=== PATIENT | female | born 1975 | race Caucasian/White ===

== ENCOUNTER 2019-11-01 08:42 | Emergency (ER) | payer BC ==
[~2019-11-01 08:42] MED LIST: ABILIFY10 MG PO; CELEXA40 MG PO; KLONOPIN1 MG PO; LATUDA PO; SAPHRIS5 MG PO; STRATTERA100 MG PO; Z.0.ADDERALL 10 MG10
--- OUTSIDE RECORDS SUMMARY | 2019-11-01 08:46 | XMS REPORT | Summary of Care ---
Author Author Caroline Page M.A. Unknown Address Unknown Phone Unavailable Care Team Providers Care Manager Quality Compliance Name Role Phone EFREN YU N.P. Unavailable Unavailable DEWAYNE HERNANDEZ M.D. Unavailable Unavailable DEWAYNE HERNANDEZ MD Unavailable Unavailable KATELYNN BOSS [place], VERONICA DAVIS Unavailable Unavailable Cyrus BOSS, Ph.D. Unavailable Unavailable Unavailable Unavailable Functional Status Name Dates Details Functional status health issues are not documented Status: Name Dates Details Cognitive status health issues are not documented Status: Problems Name Dates Details Flu vaccine need (V04.81, Z23) Status: Active History of Pneumonia of right lower lobe due to infectious organism (486, J18.1) Status: Resolved Allergic rhinitis due to pollen (477.0, J30.1) Status: Active Atypical nevi (216.9, D22.9) Status: Active Bipolar II disorder (296.89, F31.81) Status: Active Medications Name Dates Details Saphris 10 MG Sublingual Tablet Sublingual TAKE 1 TABLET TWICE DAILY * Start : 02-Oct-2016 Active Latuda 120 MG Oral Tablet TAKE 1 TABLET DAILY * Refills: 0 * Start : 02-Oct-2016 Active clonazePAM 1 MG Oral Tablet TAKE 1 TABLET TWICE DAILY PRN. >>>INTERIM REFIL ONLY. Pt NEEDS PSYCH FOLLOW-UP.< << * Quantity: 45 Refills: 0 EFREN YU N.P. * Start : 02-Oct-2016 Active Fluticasone Propionate 50 MCG/ACT Nasal Suspension USE 1 SPRAYS IN EACH NOSTRIL TWICE DAILY * Quantity: 1 Refills: 2 EFREN YU N.P. * Start : 30-Mar-2019 Active 16 GM Bottle buPROPion HCl ER (XL) 300 MG Oral Tablet Extended Release 24 Hour TAKE ONE (1) TABLET(S) BY MOUTH DAILY DIRECTED. * Quantity: 30 Refills: 2 DEWAYNE HERNANDEZ M.D. * Start : 30-Mar-2019 Active Sudafed PE Congestion 10 MG Oral Tablet TAKE 1 TABLET EVERY 4 HOURS NEEDED for head, sinus, ear congestion.. * Quantity: 60 Refills: 3 YU N.P., EFREN * Start : 16-Aug-2019 Active Lj Lopezil Cold & Flu 15-6.25-325 MG Oral Capsule TAKE DIRECTED FOR BEDTIME CONGESTION.. * Quantity: 5 Refills: 0 YU N.P., EFREN * Start : 16-Aug-2019 Active Levocetirizine Dihydrochloride 5 MG Oral Tablet TAKE 1 TABLET DAILY. * Quantity: 30 Refills: 5 YU N.P., EFREN * Start : 16-Aug-2019 Active predniSONE 10 MG Oral Tablet TAKE 1 TABLET DAILY. * Quantity: 7 Refills: 0 YU N.P., EFREN * Start : 16-Aug-2019 Active Allergies and Adverse Reactions Name Dates Details No Known Drug Allergies (Allergy) Status: Active Past Medical History Name Dates Details History of anemia (V12.3, Z86.2) Status: Resolved History of depression (V11.8, Z86.59) Status: Resolved History of Encounter for PPD test (V74.1, Z11.1) Status: Resolved History of Greater trochanteric bursitis of left hip (726.5, M70.62) Status: Resolved History of Hepatitis B vaccination administered at current visit (V49.89, Z23) Status: Resolved History of Left hip pain (719.45, M25.552) Status: Resolved History of malignant melanoma of skin (V10.82, Z85.820) Status: Resolved History of measles, mumps, and rubella vaccination (V49.89, Z92.29) Status: Resolved History of Need for Tdap vaccination (V06.1, Z23) Status: Resolved History of Piriformis syndrome of left side (355.0, G57.02) Status: Resolved History of Pneumonia of right lower lobe due to infectious organism (486, J18.1) Status: Resolved History of Thyroid dysfunction (246.9, E07.9) Status: Resolved History of Varicella vaccination given at current visit (V49.89, Z78.9) Status: Resolved Procedures Procedure Dates Details History of Ear Surgery Completed History of Tonsillectomy With Adenoidectomy Completed History of Tubal Ligation Completed Immunization Name Dates Details Hepatitis B, adult Lot #: [id number] on: 17-Sep-2018 Tdap (Adacel) Lot #: [id number] on: 17-Sep-2018 PPD, tuberculin skin test; purified protein derivative solution, intradermal Lot #: [id number] on: 17-Sep-2018 MMR Lot #: [id number] on: 17-Sep-2018 Varicella Lot #: [id number] on: 17-Sep-2018 Engerix-B 20 MCG/ML Injection Suspension Lot #: [id number] on: 19-Oct-2018 Fluzone Quadrivalent 0.5 ML Intramuscular Suspension Lot #: [id number] on: 19-Oct-2018 Hepatitis B, adult Lot #: [id number] on: 30-Mar-2019 Fluzone Quadrivalent 0.5 ML Intramuscular Suspension Lot #: [id number] on: 06-Sep-2019 Family History Name Dates Details Family history of malignant neoplasm of breast (V16.3, Z80.3) Status: Active Family history of multiple myeloma (V16.7, Z80.7) Status: Active Name Dates Details Family history of malignant neoplasm of breast (V16.3, Z80.3) Status: Active Family history of malignant neoplasm of cervix (V16.49, Z80.49) Status: Active Family history of skin cancer (V16.8, Z80.8) Status: Active Name Dates Details Family history of thyroid disease (V18.19, Z83.49) Status: Active Name Dates Details Family history of hyperlipidemia (V18.19, Z83.438) Status: Active Family history of thyroid disease (V18.19, Z83.49) Status: Active Name Dates Details Family history of hypertension (V17.49, Z82.49) Status: Active Name Dates Details Family history of lymphoma (V16.7, Z80.7) Status: Active Family history of leukemia (V16.6, Z80.6) Status: Active Social History Name Dates Details - Status: Name Dates Details Former smoker Vital Signs Date Test Result Details [id number] Temperature 98.2 f Status: Comments: Method: Temporal [id number]:10 BP Systolic 110 mm[Hg] Status: Comments: Location: LUE; Position: Sitting BP Diastolic 67 mm[Hg] Status: Comments: Location: LUE; Position: Sitting Temperature 98.7 f Status: Comments: Method: Temporal Height 68 in Status: Weight 164.25 lb Status: Body Mass Index Calculated 24.97 kg/m2 Status: Body Surface Area Calculated 1.88 m2 Status: Heart Rate 84 /min Status: Respiration Rate 12 /min Status: Physical Findings 0 Status: Comments: Alcohol Screen - How many times in the past yr have you had 5 (for M) or 4 (for F) or 4 (for all > 65yrs) or more drinks in a day? Results Date Description Value Details Results not documented Plan of Care Name Dates Details Planned Observations Planned Goals not documented Interventions Provided Medications/Immunizations Administered* Fluzone Quadrivalent 0.5 ML Intramuscular Suspension; Done: 06 Sep 2019 Instructions Name Dates Details Instructions not documented Encounters Appointment; DEWAYNE HERNANDEZ M.D. Encounter Diagnosis: Problem not documented On: 17-Sep-2018 10:45 Appointment; DEWAYNE HERNANDEZ M.D. Encounter Diagnosis: Problem not documented On: 17-Sep-2018 10:45 Appointment; TRUONG PRESSLEY P.A. Encounter Diagnosis: Problem not documented On: 19-Oct-2018 13:30 Appointment; DEWAYNE HERNANDEZ M.D. Encounter Diagnosis: Problem not documented On: 30-Mar-2019 14:00 Appointment; RAYNA KEITH NP Encounter Diagnosis: Problem not documented On: 27-Apr-2019 9:30 Appointment; DEWAYNE HERNANDEZ M.D. Encounter Diagnosis: Problem not documented On: 20-Jul-2019 12:30 Appointment; EFREN YU NP Encounter Diagnosis: Problem not documented On: 16-Aug-2019 15:30 Appointment; DEWAYNE HERNANDEZ M.D. Encounter Diagnosis: Problem not documented On: 06-Sep-2019 12:30
--- OUTSIDE RECORDS SUMMARY | 2019-11-01 08:47 | XMS REPORT ---
Author Author Admin, Yulan Organization Unknown Address Unknown Phone Unavailable PROBLEMS Condition Status Date Provider Notes Insomnia active Amanda Holley High risk meds longterm use active Amanda Holley ANXIETY DISORDER, UNSPECIFIED active Amanda Holley BIPOLAR I DISORDER, CURRENT EPISODE MANIC, MODERATE active Amanda Holley ENCOUNTERS Date Type Provider Location Encounter Diagnosis - [facility] Encounter Amanda Padilla Joann [facility] UNK - Ambulatory Encounter Amanda Holley [facility] UNK - Ambulatory Encounter Amanda Holley [facility] UNK - Ambulatory Encounter Amanda Padilla Joann [facility] UNK - Ambulatory Encounter Amanda Holley [facility] UNK - Ambulatory Encounter [facility] - Ambulatory Encounter Amanda Padilla Joann [facility] UNK - Ambulatory Encounter Amanda Holley [facility] UNK - Ambulatory Encounter Amanda Padilla [facility] UNK - Ambulatory Encounter Amanda Martínezalyssa [facility] UNK - Ambulatory Encounter Amanda Holley [facility] UNK - Ambulatory Encounter Amanda Padilla Joann [facility] Insomnia - Ambulatory Encounter Amanda Holley [facility] UNK - Ambulatory Encounter Amanda Holley [facility]K - [facility] BIPOLAR I DISORDER, CURRENT EPISODE MANIC, MODERATEANXIETY DISORDER, UNSPECIFIEDHigh risk meds longterm use - Ambulatory Encounter Kelsie La [facility] UNK VITAL SIGNS No Information Available Allergies No Known Allergy Information REASON FOR REFERRAL No Information Available RESULTS Date Observation Value Provider Reference Range Interpretation Location alanine aminotransferase (SGPT), serum 25 1/L [facility] 0-32 " aspartate aminotransferase (SGOT), serum 27 1/L [facility] 0-40 " alkaline phosphatase, serum 46 1/L [facility] 39-117 " bilirubin, serum, total <0.2 mg/dL [facility] 0.0-1.2 " albumin/globulin ratio, serum 2.4 [facility] 1.2-2.2 High " globulin, serum 2.0 [facility] 1.5-4.5 " albumin, serum 4.8 g/dL [facility] 3.5-5.5 " protein, total, serum 6.8 g/dL [facility] 6.0-8.5 " calcium, serum 9.8 mg/dL [facility] 8.7-10.2 " carbon dioxide, venous blood 24 mmol/L [facility] 20-29 " chloride, serum 98 mmol/L [facility] 96-106 " potassium, serum 3.9 mmol/L [facility] 3.5-5.2 " sodium, serum 141 mmol/L [facility] 134-144 " urea nitrogen/creatinine ratio, serum 12 [facility] 9-23 " eGFR if 113 mL/min/((173/100).m2) [facility] >59 " Estimated Glomerular Filtration Rate (calc) 98 mL/min/((173/100).m2) [facility] >59 " creatinine, serum 0.76 mg/dL [facility] 0.57-1.00 " urea nitrogen, blood 9 mg/dL [facility] 6-24 " blood glucose, random 108 mg/dL [facility] 65-99 High tricyclic antidrepressants, urine Negative Valerie Joann " propoxyphene screen, urine Negative Valerie Joann " opiates, urine, semiquantitative Negative Valerie Joann " phencyclidine screen, urine Negative Valerie Joann " Oxycodone urine screening Negative Valerie Joann " morphine drug screen, urine Negative Valerie Joann " Ecstasy (MDMA) Screen, urine Negative Valerie Joann " methamphetamine screen, urine Negative Valerie Joann " Methadone screen, urine Negative Valerie Joann " cannabinoid screen, urine Negative Valerie Joann " cocaine, urine Negative Valerie Joann " benzodiazepine screen, urine Negative Valerie Joann " barbiturates screen, urine Negative Valerie Joann " amphetamine screen, urine Negative Valerie Jaonn hemoglobin A1C, blood, as % of total hemoglobin 5.7 % [facility] 4.8-5.6 High " triiodothyronine (T3), serum 77 ng/dL [facility] 71-180 " thyroxine, serum, total 6.0 ug/dL [facility] 4.5-12.0 " thyroid stimulating hormone, serum 0.869 u[iU]/mL [facility] 0.450-4.500 " LDL cholesterol, serum 91 mg/dL [facility] 0-99 " very low density lipoproteins 18 mg/dL [facility] 5-40 " HDL cholesterol, serum 83 mg/dL [facility] >39 " triglyceride, serum, fasting 88 mg/dL [facility] 0-149 " cholesterol, serum 192 mg/dL [facility] 100-199 " alanine aminotransferase (SGPT), serum 17 1/L [facility] 0-32 " aspartate aminotransferase (SGOT), serum 21 1/L [facility] 0-40 " alkaline phosphatase, serum 49 1/L [facility] 39-117 " bilirubin, serum, total <0.2 mg/dL [facility] 0.0-1.2 " albumin/globulin ratio, serum 2.0 [facility] 1.2-2.2 " globulin, serum 2.3 [facility] 1.5-4.5 " albumin, serum 4.7 g/dL [facility] 3.5-5.5 " protein, total, serum 7.0 g/dL [facility] 6.0-8.5 " calcium, serum 9.4 mg/dL [facility] 8.7-10.2 " carbon dioxide, venous blood 23 mmol/L [facility] 20-29 " chloride, serum 90 mmol/L [facility] 96-106 Low " potassium, serum 4.8 mmol/L [facility] 3.5-5.2 " sodium, serum 130 mmol/L [facility] 134-144 Low " urea nitrogen/creatinine ratio, serum 10 [facility] 9-23 " eGFR if 126 mL/min/((173/100).m2) [facility] >59 " Estimated Glomerular Filtration Rate (calc) 109 mL/min/((173/100).m2) [facility] >59 " creatinine, serum 0.68 mg/dL [facility] 0.57-1.00 " urea nitrogen, blood 7 mg/dL [facility] 6-24 " blood glucose, random 89 mg/dL [facility] 65-99 " immature granulocytes, percentage of total cells, blood 0 % [facility] Not Estab. " basophil count, absolute 0.0 x10E3/uL [facility] 0.0-0.2 " Eosinophil Absolute Count 0.1 X10E3/UL [facility] 0.0-0.4 " monocyte count, blood, automated 1.0 X10E3/UL [facility] 0.1-0.9 High " lymphocyte count, blood, automated 2.2 X10E3/UL [facility] 0.7-3.1 " Absolute Neutrophils 3.5 X10E3/UL [facility] 1.4-7.0 " basophils as percent of blood leukocytes 0 % [facility] Not Estab. " eosinophils as percent of blood leukocytes 1 % [facility] Not Estab. " monocytes as percent of blood leukocytes 14 % [facility] Not Estab. " lymphocytes as percent of blood leukocytes 33 % [facility] Not Estab. " neutrophils as percent of blood leukocytes 52 % [facility] Not Estab. " platelet count 383 X10E3/UL [facility] 150-450 " red blood cell distribution width 15.4 % [facility] 12.3-15.4 " mean corpuscular hemoglobin concentration, RBC 32.2 G/DL [facility] 31.5-35.7 " mean corpuscular hemoglobin, RBC 26.7 pg [facility] 26.6-33.0 " mean corpuscular volume, RBC 83 fL [facility] 79-97 " hematocrit, blood 36.3 % [facility] 34.0-46.6 " hemoglobin, blood 11.7 g/dL [facility] 11.1-15.9 " erythrocyte (RBC) count 4.39 X10E6/UL [facility] 3.77-5.28 " leukocyte count, blood 6.8 X10E3/UL [facility] 3.4-10.8 HISTORY OF IMMUNIZATIONS No Information Available HISTORY OF MEDICATION USE Medication Instructions Dates Provider Comments TRAZODONE HCL 50 MG ORAL TABLET 1- 2 tabs p.o. take at bedtime Amanda Holley OXCARBAZEPINE 300 MG ORAL TABLET 1 tab Twice a Day Amanda Holley SAPHRIS 10 MG SUBLINGUAL TABLET SUBLINGUAL DISSOLVE 2 TABLETS UNDER THE TONGUE QHS Amanda Holley OXCARBAZEPINE 600 MG ORAL TABLET TK 1 T PO BID - Amanda Holley #60, 30 days supply, Prescribed by ALFONSO SOLER, Filled 07/20/2019 LATUDA 120 MG ORAL TABLET TK 1 T PO qpm Amanda Holley #30, 30 days supply, Prescribed by ALFONSO SOLER, Filled 07/20/2019 CLONAZEPAM 1 MG ORAL TABLET TAKE 1 T Three Times a Day as needed Amanda Holley #60, 30 days supply, Prescribed by DEWAYNE HERNANDEZ, Filled 07/20/2019 BUPROPION HCL ER (XL) 300 MG ORAL TABLET EXTENDED RELEASE 24 HOUR TK 1 T PO QD Amanda Holley #30, 30 days supply, Prescribed by ALFONSO SOLER, Filled 07/20/2019 SOCIAL HISTORY Date Observation Value Provider smoking status former smoker Amanda Holley " social history E&M . in 2017 after 16 marriage, 13 yo son and 17 yo daughter lives with 13 yo son and 17 yo daugter Employed. Highest education level: some college. working in a day care Sex at : Female. Amanda Kishan " social history reviewed E&M reviewed today Amanda Kishan smoking, advice to quit Yes Patel Kishan " drug use, illicit Never Patel Kishan " alcohol use Currently Patel Kishan " smoking status former smoker Patel Kishan " social history E&M . in 2017 after 16 marriage, 13 yo son and 17 yo daughter lives with 13 yo son and 17 yo daugter Employed. Highest education level: some college. working in a day care Sex at : Female. Amanda Holley " social history reviewed E&M reviewed today Patel Kishan drug use, illicit Never Patel Kishan " smoking status former smoker Patel Kishan " alcohol use Currently Patel Kishan " social history E&M . in 2017 after 16 marriage, 13 yo son and 17 yo daughter lives with 13 yo son and 17 yo daugter Employed. Highest education level: some college. working in a day care Sex at : Female. Amanda Holley " social history reviewed E&M reviewed today Amanda Holley " Exercise Program Referral T Aamnda Holley " Weight Management Counseling Provided T Amanda Holley " Nutrition intervention T Amanda Holley drug use, illicit Never Patel Kishan " smoking status former smoker Amanda Holley " alcohol use, frequency few times per month Patel Kishan " alcohol use Currently Patel Kishan " social history reviewed E&M reviewed today Amanda Holley " social history E&M . in 2017 after 16 marriage, 13 yo son and 17 yo daughter lives with 13 yo son and 17 yo daugter Employed. Highest education level: some college. working in a day care Sex at : Female. Amanda Holley " sex at Female Amanda Holley " home/family situation, assessment lives with 13 yo son and 17 yo dajaredter Amanda Holley " family support in 2017 after 16 marriage, 13 yo son and 17 yo daughter Patel Kishan " Exercise Program Referral T Amanda Holley " Weight Management Counseling Provided T Amanda Holley " Nutrition intervention T Amanda Holley FUNCTIONAL STATUS No Information Available MENTAL STATUS Date Observation Value Provider mental status assessment, judgment , poor; denies her irregular behavior about her clonazepam script Patel Kishan " insight (mental status exam) poor, denies her irregular behavior about her clonazepam script Patel Kishan " Mental Status Exam: intelligence adequate fund of information, intact memory processes, oriented to person, oriented to place, oriented to time, oriented to situation, oriented to reality Patel Kishan " hallucinations none Patel Kishan " thought content (mental status exam) (E&M) lucid Amanda Holley " mental status assessment, process able to abstract, goal-directed, logical Patel Kishan " mental status assessment, sensorium alert, attentive, clear Patel Kishan " affect (mental status exam) congruent, euthymic, normal intensity, normal range Patel Kishan " mood (mental status exam) 'better today ' Patel Kishan " mental status assessment, speech activity normal flow, normal pace, normal pressure, normal rate, normal tone, normal volume, spontaneous Patel Kishan " mental status assessment, motor activity normal gait, normal posture Patel Kishan " behavior (mental status exam) appropriate, candid, cooperative, good eye contact, polite, responsive Patel Kishan " mental appearance (mental status exam) adequate hygiene, appropriate dress, looks like stated age, neat Amanda Holley mental status assessment, judgment good Amanda Holley " insight (mental status exam) good Amanda Holley " Mental Status Exam: intelligence adequate fund of information, intact memory processes, oriented to person, oriented to place, oriented to time, oriented to situation, oriented to reality Patel Kishan " hallucinations none Patel Kishan " thought content (mental status exam) (E&M) lucid Amanda Holley " mental status assessment, process able to abstract, goal-directed, logical Patel Kishan " mental status assessment, sensorium alert, attentive, clear Patel Kishan " affect (mental status exam) congruent, tearful , normal intensity, normal range Patel Kishan " mood (mental status exam) stressed Patel Kishan " mental status assessment, speech activity normal flow, normal pace, normal pressure, normal rate, normal tone, normal volume, spontaneous Patel Kishan " mental status assessment, motor activity normal gait, normal posture Patel Kishan " behavior (mental status exam) appropriate, candid, cooperative, good eye contact, polite, responsive Patel Kishan " mental appearance (mental status exam) adequate hygiene, appropriate dress, looks like stated age, neat, missing digits on right hand Amanda Holley mental status assessment, judgment good Amanda Holley " insight (mental status exam) good Amanda Holley " Mental Status Exam: intelligence adequate fund of information, intact memory processes, oriented to person, oriented to place, oriented to time, oriented to situation, oriented to reality Patel Kishan " hallucinations none Patel Kishan " thought content (mental status exam) (E&M) lucid Amanda Holley " mental status assessment, process able to abstract, goal-directed, logical Patel Kishan " mental status assessment, sensorium alert, attentive, clear Patel Kishan " affect (mental status exam) congruent, euthymic, normal intensity, normal range Patel Kishan " mental status assessment, speech activity normal flow, normal pace, normal pressure, normal rate, normal tone, normal volume, spontaneous Patel Kishan " mental status assessment, motor activity normal gait, normal posture Patel Kishan " behavior (mental status exam) appropriate, candid, cooperative, good eye contact, polite, responsive Patel Kishan " mental appearance (mental status exam) adequate hygiene, appropriate dress, looks like stated age, neat Patel Kishan mental status assessment, judgment good Patel Kishan " insight (mental status exam) good Patel Kishan " Mental Status Exam: intelligence adequate fund of information, intact memory processes, oriented to person, oriented to place, oriented to time, oriented to situation, oriented to reality Patel Kishan " hallucinations none Patel Kishan " thought content (mental status exam) (E&M) lucid Patel Kishan " mental status assessment, process able to abstract, goal-directed, logical Patel Kishan " mental status assessment, sensorium alert, attentive, clear Patel Kishan " affect (mental status exam) congruent, euthymic, normal intensity, normal range Patel Kishan " mental status assessment, speech activity normal flow, normal pace, normal pressure, normal rate, normal tone, normal volume, spontaneous Patel Kishan " mental status assessment, motor activity normal gait, normal posture Patel Kishan " behavior (mental status exam) appropriate, candid, cooperative, good eye contact, polite, responsive Patel Kishan " mental appearance (mental status exam) adequate hygiene, appropriate dress, looks like stated age, neat Amanda Holley " anxiety worry a lot, sleep disturbance, many physical complaints, panic attacks Patel Kishan MEDICAL EQUIPMENT No Information Available FAMILY HISTORY No Information Available INSURANCE PROVIDERS Payer name Policy type / Coverage type Covered constitution party ID [facility] [employer] Medicaid [id number] ADVANCE DIRECTIVES No Information Available TREATMENT PLAN Date Name Drug Profile, Urine (7 Drugs) + Alcohol Comp. Metabolic Panel (14) Lipid Panel TSH+T4+T3H Hemoglobin A1c Comp. Metabolic Panel (14) CBC With Differential/Platelet Est Patient Detailed - 73782 Est Patient Detailed - 41061 Est Patient Detailed - 54818 Diagnostic evaluation with medical - 36057 HISTORY OF PROCEDURES Procedure Date Procedure Name Provider Procedure Notes Status Diagnostic evaluation with medical - 07584 Amanda Holley completed GOALS No Information Available HEALTH CONCERNS No Information Available
--- OUTSIDE RECORDS SUMMARY | 2019-11-01 08:47 | XMS REPORT ---
Author Author Admin, [place] Organization Unknown Address Unknown Phone Unavailable PROBLEMS Condition Status Date Provider Notes Insomnia active Amanda Holley High risk meds fdc use active Amanda Holley ANXIETY DISORDER, UNSPECIFIED active Amanda Holley BIPOLAR I DISORDER, CURRENT EPISODE MANIC, MODERATE active Amanda Holley ENCOUNTERS Date Type Provider Location Encounter Diagnosis - Ambulatory Encounter Amanda Holley [facility] UNK [facility] En[facility] Amanda Padilla Joann [facility] UNK - Ambulatory Encounter Amanda Holley [facility] UNK - Ambulatory Encounter Amanda Holley [facility] UNK - Ambulatory Encounter Amanda Padilla Joann [facility] UNK - Ambulatory Encounter Amanda Holley [facility] UNK - Ambulatory Encounter Amanda Padilla Joann [facility] UNK - Ambulatory Encounter Amanda Holley [facility] UNK - Ambulatory Encounter Amanda Holley [facility] UNK - Ambulatory Encounter Amanda Holley Valerie Joann [facility] Insomnia - Ambulatory Encounter Amanda Holley [facility] UNK - Ambulatory Encounter Amanda Holley [facility] UNK - Ambulatory Encounter Amanda David [facility] BIPOLAR I DISORDER, CURRENT EPISODE MANIC, MODERATEANXIETY DISORDER, UNSPECIFIEDHigh risk meds terminal operator use - Ambulatory Encounter Kelsie Tovar [facility] UNK VITAL SIGNS No Information [...] Joann " amphetamine screen, urine Negative Valerie Joann hemoglobin A1C, blood, as % of total [...] 07/20/2019 SOCIAL HISTORY Date Observation Value Provider smoking, advice to quit Yes Amanda Holley " drug use, illicit Never Amanda Holley " alcohol use Currently Amanda Holley " smoking status former smoker Amanda Holley " social history E&M . in 2017 after 16 marriage, 13 yo son and 17 yo daughter lives with 13 yo son and 17 yo daugter Employed. Highest education level: some college. working in a day care Sex at : Female. Amanda Holley " social history reviewed E&M reviewed today Amanda Holley drug use, illicit Never Amanda Holley " smoking status former smoker Amanda Holley " alcohol use Currently Amanda Holley " social history E&M . in 2017 after 16 marriage, 13 yo son and 17 yo daughter lives with 13 yo son and 17 yo daugter Employed. Highest education level: some college. working in a day care Sex at : Female. Amanda Holley " social history reviewed E&M reviewed today Amanda Holley " Exercise Program Referral T Amanda Holley " Weight Management Counseling Provided T Amanda Holley " Nutrition intervention T Patel Kishan drug use, illicit Never Amanda Holley " smoking status former smoker Amanda Holley " alcohol use, frequency few times per month Patel Kishan " alcohol use Currently Amanda Holley " social history reviewed E&M reviewed today Patel Kishan " social history E&M . in 2017 after 16 marriage, 13 yo son and 17 yo daughter lives with 13 yo son and 17 yo daugter Employed. Highest education level: some college. working in a day care Sex at : Female. Patel Kishan " sex at Female Amanda Holley " home/family situation, assessment lives with 13 yo son and 17 yo claytonter Amanda Holley " family support in 2017 after 16 marriage, 13 yo son and 17 yo daughter Patel Kishan " Exercise Program Referral T Amanda Holley " Weight Management Counseling Provided T Amanda Holley " Nutrition intervention T Amanda Holley FUNCTIONAL STATUS No Information Available MENTAL STATUS Date Observation Value Provider mental status assessment, judgment good Aamnda Holley " insight (mental status exam) good [...] Kishan " mood (mental status exam) stressed Amanda Holley " mental status assessment, speech activity normal flow, normal pace, normal pressure, normal rate, normal tone, normal volume, spontaneous Patel Kishan " mental status assessment, motor activity normal gait, normal posture Patel Kishan " behavior (mental status exam) appropriate, candid, cooperative, good eye contact, polite, responsive Amanda Holley " mental appearance (mental status exam) adequate hygiene, appropriate dress, looks like stated age, neat, missing digits on right hand Patel Kishan mental status assessment, judgment good Patel Kishan " insight (mental status exam) good Patel Kishan " Mental Status Exam: intelligence adequate fund of information, intact memory processes, oriented to person, oriented to place, oriented to time, oriented to situation, oriented to reality Patel Kishan " hallucinations none Patel Kishan " thought content (mental status exam) (E&M) lucid Patel Kishan" mental status assessment, process able to abstract, [...] Amanda Holley mental status assessment, judgment good Patel Kishan " insight (mental status exam) good Patel Kishan " Mental Status Exam: intelligence adequate fund of information, intact memory processes, oriented to person, oriented to place, oriented to time, oriented to situation, oriented to reality Patel Kishan " hallucinations none Patel Kishan " thought content (mental status exam) (E&M) lucid Amanda Holley" mental status assessment, process able to abstract, [...] hygiene, appropriate dress, looks like stated age, reema Holley " anxiety worry a lot, sleep disturbance, many physical complaints, panic attacks Patel Kishan MEDICAL EQUIPMENT No Information Available FAMILY HISTORY No Information Available INSURANCE PROVIDERS Payer name Policy type / Coverage type Covered constitution party ID [employer] Medicaid [id number] ADVANCE DIRECTIVES No Information Available TREATMENT PLAN Date Name Drug Profile, Urine (7 Drugs) + Alcohol Comp. Metabolic Panel (14) Lipid Panel TSH+T4+T3H Hemoglobin A1c Comp. Metabolic Panel (14) CBC With Differential/Platelet Est Patient Detailed - 05875 Est Patient Detailed - 19131 Diagnostic evaluation with medical - 38178 HISTORY OF PROCEDURES Procedure Date Procedure Name Provider Procedure Notes Status Diagnostic evaluation with medical - 93609 Amanda Holley completed GOALS No Information Available HEALTH CONCERNS No Information Available
--- OUTSIDE RECORDS SUMMARY | 2019-11-01 08:47 | XMS REPORT ---
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 Amanda Holley ANXIETY DISORDER, UNSPECIFIED active Amanda Holley BIPOLAR I DISORDER, CURRENT EPISODE MANIC, MODERATE active Amanda Holley ENCOUNTERS Date Type Provider Location Encounter Diagnosis - [facility] En[facility] Amanda Holley [facility] UNK - Ambulatory Encounter Amanda Padilla Joann [facility] UNK - Ambulatory Encounter Amanda Holley [facility] UNK - Ambulatory Encounter Amanda Holley [facility] UNK - Ambulatory Encounter Amanda Padilla Joann [facility] UNK - [facility] - Ambulatory Encounter Amanda Holley Valerie Joann [facility] UNK - Ambulatory Encounter Amanda Holley [facility] UNK - Ambulatory Encounter Amanda Holley [facility] UNK - Ambulatory Encounter Amanda Holley [facility] UNK - Ambulatory Encounter Amanda Holley [facility] UNK - Ambulatory Encounter Amanda Martinezea [facility] Insomnia - Ambulatory Encounter Amanda Holley [facility] UNK - Ambulatory Encounter Amanda Holley [facility] UNK - Ambulatory Encounter Amanda David [facility] BIPOLAR I DISORDER, CURRENT EPISODE MANIC, MODERATEANXIETY DISORDER, UNSPECIFIEDHigh risk meds termite treater helper use - Ambulatory Encounter Kelsie Tovar [facility] UNK VITAL SIGNS No Information [...] Holley #30, 30 days supply, Prescribed by AFLONSO SOLER, Filled 07/20/2019 CLONAZEPAM 1 MG ORAL [...] history reviewed E&M reviewed today Patel Kishan smoking, advice to quit Yes Amanda Holley " drug use, illicit Never Amanda Holley " alcohol use Currently Patel Kishan " [...] today Patel Kishan drug use, illicit Never Amanda Holley " smoking status former smoker Amanda Holley " alcohol use Currently Patel Kishan " [...] T Amanda Holley drug use, illicit Never Amanda Holley " smoking status former smoker Amanda Holley " alcohol use, frequency few times per month Amanda Holley " alcohol use Currently Amanda [...] 13 yo son and 17 yo daugter Amanda Holley " family support in 2017 after 16 marriage, 13 yo son and 17 yo daughter Amanda Holley " Exercise Program Referral Pati Holley " Weight Management Counseling Provided Pati Holley " Nutrition intervention Pati Holley FUNCTIONAL STATUS No Information Available MENTAL STATUS Date Observation Value Provider mental status assessment, judgment , poor; denies her irregular behavior about her clonazepam script Amanda Holley " insight (mental status exam) poor, denies her irregular behavior about her clonazepam script Amanda Holley " Mental Status Exam: intelligence [...] Holley mental status assessment, judgment good Amanda Holley" insight (mental status exam) good Amanda Holley" Mental Status Exam: intelligence adequate fund of [...] Holley mental status assessment, judgment good Amanda Holley" insight (mental status exam) good Amanda Holley [...] name Policy type / Coverage type Covered libertarian ID [employer] Medicaid [id number] ADVANCE DIRECTIVES No Information Available TREATMENT PLAN Date Name Drug Profile, Urine (7 Drugs) + Alcohol Comp. Metabolic Panel (14) Lipid Panel TSH+T4+T3H Hemoglobin A1c Comp. Metabolic Panel (14) CBC With Differential/Platelet Est Patient Detailed - 79198 Est Patient Detailed - 09331 Est Patient Detailed - 77324 Diagnostic evaluation with medical - 16144 HISTORY OF PROCEDURES Procedure Date Procedure Name Provider Procedure Notes Status Diagnostic evaluation with medical - 73529 Amanda Holley completed GOALS No Information Available HEALTH CONCERNS No Information Available
== END 2019-11-01 09:12 | disposition short-term general hospital (02) ==
LOC: FSED 08:42
DX: H92.02 Otalgia, left ear (principal)

== ENCOUNTER → 2021-06-25 | Day surgery (SDC) | payer BC, OTHER ==
[~2021-06-25] MED LIST changes: +AMBIEN10 MG PO; +DEXAMETHASONE SOD PHOS INJ 4 MG/ML VIAL ONE; +FENTANYL CITRATE/PF 100MCG/2 ML INJ ONE; +LIDOCAINE HCL 2% LOCAL INJ 5 ML SDV VIAL INJ ONE; +LITHOBID300 MG PO; +MEPERIDINE HCL INJ 25 MG/ML VIAL ONE; +MIDAZOLAM HCL 2 MG/2 ML VIAL ONE; +MONTELUKAST SOD10 MG PO; +ONDANSETRON HCL INJ 2MG/ML 2ML 2 MG/ML VIAL ONE; +POVIDONE IODINE 0.05% 0.05 % ML PO ONE; +PROPOFOL IV EMULSION 10 MG/ML 20 ML VIAL ONE; +RISPERIDONE2 MG PO; +ROPIVACAINE 0.5% 5 MG/ML 30 ML SDV ONE; +SEVOFLURANE INHAL SOLN 250 ML PEN BTL ONE; +SODIUM CHLORIDE 0.9% 50ML 50 ML ONE; +TRAZODONE HCL50 MG PO; +Vancomycin IV 500 MG ONE; +WELLBUTRIN XL300 MG PO
[2021-06-25 13:20] VITALS: BP 126/84
== END | disposition home or self-care (01) ==
LOC: OR 08:12
PROVIDERS: ATTEND Specialist
DX: S83.511A Sprain of anterior cruciate ligament of right knee, initial encounter (principal); S83.241A Other tear of medial meniscus, current injury, right knee, initial encounter; F90.9 Attention-deficit hyperactivity disorder, unspecified type; F31.9 Bipolar disorder, unspecified; X58.XXXA Exposure to other specified factors, initial encounter; Y93.59 Activity, other involving other sports and athletics played individually; Y99.8 Other external cause status; Z68.30 Body mass index [BMI] 30.0-30.9, adult
CPT/HCPCS: 29881; 29888; 81025; C1713 ×3; J0690; J1100; J2001; J2175; J2250; J2405; J2704; J2795; J3010; J3370